=== PATIENT | female | born 1980 | race Caucasian/White ===

== ENCOUNTER → 2019-10-25 | Emergency (ER) | payer OTHER ==
[~2019-10-25] VITALS: Ht 170.2 cm; Wt 81.7 kg
== END ==
LOC: ED 21:23
DX: S60.812A Abrasion of left wrist, initial encounter (principal); S60.811A Abrasion of right wrist, initial encounter; S00.81XA Abrasion of other part of head, initial encounter; R45.851 Suicidal ideations; F10.129 Alcohol abuse with intoxication, unspecified; Y90.6 Blood alcohol level of 120-199 mg/100 ml; Z88.2 Allergy status to sulfonamides; Z88.5 Allergy status to narcotic agent; X78.8XXA Intentional self-harm by other sharp object, initial encounter
CPT/HCPCS: 36415; 70450; 80053; 80176; 81001; 84443; 84703; 85025; 99285-25; G0480

== ENCOUNTER 2020-10-21 03:55 | Emergency (ER) | payer SELFPAY ==
[~2020-10-21] VITALS: Ht 160 cm; Wt 77.1 kg
--- OUTSIDE RECORDS SUMMARY | 2020-10-21 04:00 | XMS ---
PreManage Notification: CALIXTO CHOWDARY Security Director Phone Events No recent Security Events currently on file CRITERIA MET - [facility] Care Guidelines CARE PROVIDERS There are no care providers on record at this time. Guidelines Source: [facility] [place] Guidelines Date: 03/26/2020 Care Coordination: Member is currently enrolled in Mental Health Services through [facility]. If services are needed through [facility] please call: [place] [phone] Yes[facility]; [phone] Crisis [phone] [facility] VISIT COUNT (12 MO.) [address] [place] [address] TOTAL 4 NOTE: Visits indicate total known visits. ED/UCC VISIT TRACKING (12 MO.) 10/21/2020 03:57 [facility] TYPE: Emergency COMPLAINT: - POSS SE[facility]URE [facility] COMPLAINT: - LEFT LOWER QUADRANT PAIN DIAGNOSES: - Allergy status to sulfonamides - PAIN POSS HERNIA - Nicotine dependence, cigarettes, uncomplicated - Left lower quadrant pain - Allergy status to narcotic agent - Ulcerative colitis, unspecified, without complications - Left lower quadrant pain 06/02/2020 19[facility] COMPLAINT: - UNSPECIFIED INJURY OF HEAD, INITIAL ENCOUNTER DIAGNOSES: - Concussion without loss of consciousness, initial encounter - Insomnia, unspecified - Bipolar disorder, unspecified - Nausea - Allergy status to narcotic agent - Allergy status to sulfonamides - Striking against or struck by other objects, initial encounter - Unspecified injury of head, initial encounter - HEAD INJURY W/ LOC - Tobacco use - Anxiety disorder, unspecified - Headache 10/25/2019 21:[address] [facility] [place] TYPE: Emergency COMPLAINT: - MEDICAL CLEARANCE DIAGNOSES: - Allergy status to sulfonamides - Abrasion of left wrist, initial encounter - Allergy status to narcotic agent - Alcohol abuse with intoxication, unspecified - Abrasion of other part of head, initial encounter - Intentional self-harm by other sharp object, initial encounter - Suicidal ideations - Abrasion of right wrist, initial encounter - Blood alcohol level of 120-199 mg/100 ml INPATIENT VISIT TRACKING (12 MO.) No inpatient visits to display in this time frame [email or web address]
[2020-10-21] MEDS ORDERED: CLONIDINE HCL0.1 M1 PO (04:18)
== END 2020-10-21 06:54 | disposition home or self-care (01) ==
LOC: ED 03:55
DX: R56.9 Unspecified convulsions (principal); F17.200 Nicotine dependence, unspecified, uncomplicated; Z88.2 Allergy status to sulfonamides; Z88.5 Allergy status to narcotic agent
CPT/HCPCS: 70450; 80053; 81001; 85025; 99285-25; G0480; J7030

== ENCOUNTER 2020-11-10 13:18 | Emergency (ER) | payer OTHER ==
[~2020-11-10] VITALS: Ht 160 cm; Wt 77.1 kg
[~2020-11-10 13:18] MED LIST: CLONIDINE HCL0.1 M1 PO
--- OUTSIDE RECORDS SUMMARY | 2020-11-10 13:20 | XMS ---
PreManage Notification: CALIXTO CHOWDARY Security Senior Clinician Events No recent Security Events currently on file CRITERIA MET - [facility] - Has Care Guidelines - [facility] - 2 Visits in 30 Days CARE PROVIDERS There are no care providers on record at this time. Guidelines Source: [facility] [place] Guidelines Date: 03/26/2020 Care Coordination: Member is currently enrolled in Mental Health Services through [employer]. If services are needed through [facility] please call: [place] [phone] Yesica/[facility]; [phone] Crisis [phone] E[facility] VISIT COUNT (12 MO.) [address] TOTAL 4 NOTE: Visits indicate total known visits. ED/UCC VISIT TRACKING (12 MO.) 11/10/2020 13:18 [facility] TYPE: Emergency COMPLAINT: - LOWER BACK/ABD PAIN 10/21/2020 03:57 [facility] TYPE: Emergency COMPLAINT: - POSS SEIZURE DIAGNOSES: - Nicotine dependence, unspecified, uncomplicated - Altered mental status, unspecified - Allergy status to narcotic agent - Allergy status to sulfonamides - Unspecified convulsions 07/13/2020 11:30 [facility] Jose Manuel POLANCO TYPE: Emergency COMPLAINT: - LEFT LOWER QUADRANT PAIN DIAGNOSES: - Allergy status to sulfonamides - PAIN POSS HERNIA - Nicotine dependence, cigarettes, uncomplicated - Left lower quadrant pain - Allergy status to narcotic agent - Ulcerative colitis, unspecified, without complications - Left lower quadrant pain 06/02/2020 19:30 [facility] Jose Manuel POLANCO TYPE: Emergency COMPLAINT: - UNSPECIFIED INJURY [...] use - Anxiety disorder, unspecified - Headache INPATIENT VISIT TRACKING (12 MO.) No inpatient visits to display in this time frame [email or web address]
[2020-11-10] MEDS ORDERED: KLONOPIN1 MG PO (13:34)
[2020-11-10] MEDS ORDERED: TIZANIDINE HCL4 M1 PO (13:34)
[2020-11-10] MEDS ORDERED: SERTRALINE HCL100 MG PO (13:34)
[2020-11-10] MEDS ORDERED: ONDANSETRON ODT8 MG PO (15:37)
[2020-11-10] MEDS ORDERED: PREDNISONE20 MG PO (15:37)
== END 2020-11-10 16:02 | disposition home or self-care (01) ==
LOC: ED 13:18
DX: K51.90 Ulcerative colitis, unspecified, without complications (principal); F17.200 Nicotine dependence, unspecified, uncomplicated; Z88.2 Allergy status to sulfonamides; Z88.5 Allergy status to narcotic agent; Z79.899 Other long term (current) drug therapy
CPT/HCPCS: 80053; 81001; 83690; 85025; 96374; 99284-25; J2405; J7030; J7512

== ENCOUNTER 2021-10-07 09:32 | Emergency (ER) | payer OTHER ==
[~2021-10-07] VITALS: Ht 160 cm; Wt 77.1 kg
[~2021-10-07 09:32] MED LIST changes: +KLONOPIN1 MG PO; +ONDANSETRON ODT8 MG PO; +PREDNISONE20 MG PO; +SERTRALINE HCL100 MG PO; +TIZANIDINE HCL4 M1 PO
--- OUTSIDE RECORDS SUMMARY | 2021-10-07 09:40 | XMS ---
PreManage Notification: CALIXTO CHOWDARY Security Academic Coach Events No recent Security Events currently on file CRITERIA MET - [facility] - Has Care Guidelines CARE PROVIDERS There are no care providers on record at this time. Care Guidelines exist for the following facilities: [facility] ( 03/26/2020 ) Care History Medical/Surgical 11/13/2020 [facility] - PHONE # PROVIDED IS NO LONGER IN SERVICE. - NO PCP LETTER SENT TO PATIENT. E[facility] VISIT COUNT (12 MO.) 1 [facility] 3 [facility] TOTAL 4 NOTE: Visits indicate total known visits. ED/UCC VISIT TRACKING (12 MO.) 10/07/2021 09:33 [facility] [place] TYPE: Emergency COMPLAINT: - DIZZY, CLOGGED EARS 02/08/2021 15:52 [facility] Jose Manuel POLANCO TYPE: Emergency COMPLAINT: - PAIN IN LEFT ANKLE AND JOINTS OF LEFT FOOT DIAGNOSES: - Allergy status to narcotic agent - Fall on same level due to ice and snow, initial encounter - Other specified places as the place of occurrence of the external cause - Other specified soft tissue disorders - Displaced spiral fracture of shaft of left fibula, initial encounter for closed fracture - Other fracture of lower end of left tibia, initial encounter for closed fracture - FALL INJURY LEFT FO - Pain in left ankle and joints of left foot - Allergy status to sulfonamides 11/10/2020 13:18 [facility] TYPE: Emergency COMPLAINT: - LOWER BACK/ABD PAIN DIAGNOSES: - Ulcerative colitis, unspecified, without complications - Nicotine dependence, unspecified, uncomplicated - Allergy status to sulfonamides - Allergy status to narcotic agent - Low back pain - Other termite exterminator (current) drug therapy 10/21/2020 03:57 [facility] [place] TYPE: Emergency COMPLAINT: - POSS SEIZURE DIAGNOSES: - Nicotine dependence, unspecified, uncomplicated - Altered mental status, unspecified - Allergy status to narcotic agent - Allergy status to sulfonamides - Unspecified convulsions INPATIENT VISIT TRACKING (12 MO.) No inpatient visits to display in this time frame [email or web address]
[2021-10-07] MEDS ORDERED: PREDNISONE20 MG PO (10:36)
== END 2021-10-07 11:27 | disposition home or self-care (01) ==
LOC: ED 09:32
DX: H83.01 Labyrinthitis, right ear (principal); F43.10 Post-traumatic stress disorder, unspecified; F17.200 Nicotine dependence, unspecified, uncomplicated; Z88.2 Allergy status to sulfonamides; Z88.5 Allergy status to narcotic agent
CPT/HCPCS: 99283; J7512

== ENCOUNTER 2022-04-25 21:44 | Emergency (ER) | payer OTHER ==
[~2022-04-25] VITALS: Ht 160 cm; Wt 77.1 kg
--- OUTSIDE RECORDS SUMMARY | 2022-04-25 21:46 | XMS ---
PreManage Notification: CALIXTO CHOWDARY Security Seam Rubber Events No recent Security Events currently on file CRITERIA MET - [facility] - Has Care Guidelines - [facility] CARE PROVIDERS There are no care providers on record at this time. Care Guidelines exist for the following facilities: [facility] ( 03/26/2020 ) Care History Medical/Surgical 10/08/2021 [facility] - CHW CONTACTED PATIENT DISCUSSED THE IMPORTANCE OF ESTABLISHING CARE WITH A PROVIDER IN THE AREA. - PATIENT STATED SHE PLANNED ON CONTACTING [facility] TODAY- CONTACT NUMBER PROVIDED 11/13/2020 [facility] - PHONE # PROVIDED IS NO LONGER IN SERVICE. - NO PCP LETTER SENT TO PATIENT. [facility] VISIT COUNT (12 MO.) [facility]. TOTAL 3 NOTE: Visits indicate total known visits. ED/C VISIT TRACKING (12 MO.) 04/25/2022 21:45 [facility] [place] TYPE: Emergency COMPLAINT: - URINE PROBLEM [facility]2022 19[facility] DIAGNOSES: - Unspecified perforation of tympanic membrane, left ear - Otalgia - ear bleeding 10/07/2021 09:33 [facility] [place] TYPE: Emergency COMPLAINT: - DIZZY, CLOGGED EARS DIAGNOSES: - Allergy status to narcotic agent - Labyrinthitis, right ear - Post-traumatic stress disorder, unspecified - Nicotine dependence, unspecified, uncomplicated - Allergy status to sulfonamides - Dizziness and giddiness INPATIENT VISIT TRACKING (12 MO.) No inpatient visits to display in this time frame [email or web address]
[2022-04-25] MEDS ORDERED: TYLENOL325 MG PO (22:02)
[2022-04-25] MEDS ORDERED: CLARITIN10 M2 PO (22:02)
[2022-04-25] MEDS ORDERED: CEFDINIR300 MG PO (22:17)
== END 2022-04-25 22:53 | disposition home or self-care (01) ==
LOC: ED 21:44
DX: N39.0 Urinary tract infection, site not specified (principal); F43.10 Post-traumatic stress disorder, unspecified; F17.200 Nicotine dependence, unspecified, uncomplicated; Z88.2 Allergy status to sulfonamides; Z88.5 Allergy status to narcotic agent; Z79.899 Other long term (current) drug therapy
CPT/HCPCS: 81001; 84703; 96372; 99283; J0696; J1885

== ENCOUNTER 2023-10-30 10:16 | Emergency (ER) | payer OTHER ==
[~2023-10-30] VITALS: Ht 160 cm; Wt 78.7 kg
[~2023-10-30 10:16] MED LIST changes: +CEFDINIR300 MG PO; +CLARITIN10 M2 PO; +TYLENOL325 MG PO
[2023-10-30 11:11] LABS: BILIRUBIN, URINE NEGATIVE (negative); BLOOD/HGB, URINE TRACE-I (Negative); KETONE, URINE NEGATIVE (Negative); LEUK ESTERASE, URINE SMALL (negative); NITRITE, URINE NEGATIVE (negative)
[2023-10-30 11:25] LABS: BACTERIA, URINE 2+ /hpf (negative); EPITHELIAL CELLS, URINE SQUAMOUS 2+ /lpf (0-1+); REFLEX CULTURE, URINE No (No)
[2023-10-30 11:36] LABS: BASOPHILS 0.1 % (0-2); EOSINOPHILS 0.3 % (0-6); HEMATOCRIT 35.5 % (35.0-50.0); HEMOGLOBIN 11.9 g/dL (12.0-18.0); LYMPHOCYTES 4.5 % (24-44); MCH 32.8 (27-36); MCHC 33.6 g/dl (30-36); MCV 97.6 fl (81-99); MONOCYTES 7.1 % (0-12); PLATELET COUNT 202 K/uL (140-440); RBC 3.63 M/ul (4.3-5.7); RDW 12.5 (10.5-15.0)
[2023-10-30 11:53] LABS: ALBUMIN 3.4 g/dL (3.4-5.0); ALBUMIN/GLOBULIN RATIO 0.85 (1.1-2.4); ANION GAP 15.6 (7-21); BILIRUBIN, TOTAL 0.8 ng/dL (0.2-1.0); BUN/CREATININE RATIO 10.75 (6.0-28.6); CALCIUM 8.8 mg/dL (8.5-10.1); CREATININE, SERUM 0.93 mg/dL (0.55-1.02); POTASSIUM 3.6 mmol/L (3.5-5.1); PROTEIN, TOTAL 7.4 g/dL (6.4-8.2)
[2023-10-30] MEDS ORDERED: CEFDINIR300 MG PO (12:30)
[2023-10-30 13:02] VITALS: BP 104/67
== END 2023-10-30 13:01 | disposition home or self-care (01) ==
LOC: ED 10:16
PROVIDERS: Emergency Medicine
DX: N12 Tubulo-interstitial nephritis, not specified as acute or chronic (principal); F17.200 Nicotine dependence, unspecified, uncomplicated; Z88.2 Allergy status to sulfonamides; Z88.5 Allergy status to narcotic agent; Z79.899 Other long term (current) drug therapy
CPT/HCPCS: 36415; 74177; 80053; 81001; 84703; 85025; 87088; 96375; 99284-25; J0696; J1885; J2405; Q9967

== ENCOUNTER 2024-04-13 10:03 | Emergency (ER) | payer OTHER ==
[~2024-04-13] VITALS: Ht 160 cm; Wt 71.0 kg
[2024-04-13] MEDS ORDERED: PENICILLIN V P500 MG PO (11:22)
[2024-04-13 11:33] VITALS: BP 110/80
== END 2024-04-13 11:34 | disposition home or self-care (01) ==
LOC: ED 10:03
DX: K04.7 Periapical abscess without sinus (principal); F17.200 Nicotine dependence, unspecified, uncomplicated; Z88.2 Allergy status to sulfonamides; Z88.5 Allergy status to narcotic agent
CPT/HCPCS: 41800; 99282